=== PATIENT | male | born 1995 | race Two or more races ===

== ENCOUNTER 2017-12-26 14:37 | Emergency (ER) | payer OTHER ==
[~2017-12-26] VITALS: Ht 167.6 cm; Wt 65.8 kg
[2017-12-26 14:46] VITALS: BP 97/58
== END 2017-12-26 16:00 | disposition home or self-care (01) ==
LOC: ER 14:44
DX: S69.92XA Unspecified injury of left wrist, hand and finger(s), initial encounter (principal); X58.XXXA Exposure to other specified factors, initial encounter; Y93.71 Activity, boxing; Y92.39 Other specified sports and athletic area as the place of occurrence of the external cause; Y99.8 Other external cause status
CPT/HCPCS: 73110; A4606; Z7610